=== PATIENT | male | born 1995 | race Caucasian/White ===

== ENCOUNTER 2020-10-24 23:01 | Emergency (ER) | payer OTHER ==
[~2020-10-24] VITALS: Ht 175.3 cm; Wt 65.8 kg
[2020-10-24 23:10] VITALS: BP 148/89
--- NOTE | 2020-10-24 23:13 | NUR ---
PATIENT ASSESSMENT COMPLETED BY MAE, NO NURSING INTERVENTIONS REQUIRED AT THIS TIME.
--- NOTE | 2020-10-24 23:13 | NUR ---
TO LOBBY A/ W BED AMBULATORY
--- NOTE | 2020-10-25 00:50 | NUR ---
TO ER BED 6
[2020-10-25 02:20] VITALS: BP 148/89
--- NOTE | 2020-10-25 02:21 | NUR ---
Patient discharged with v/s stable. Written and verbal after care instructions given and explained. Patient verbalized understanding. Ambulatory with steady gait. All questions addressed prior to discharge. Advised to follow up with PMD.
== END 2020-10-25 02:21 | disposition home or self-care (01) ==
LOC: MED 23:01
DX: S01.80XA Unspecified open wound of other part of head, initial encounter (principal); W34.00XA Accidental discharge from unspecified firearms or gun, initial encounter; Y93.89 Activity, other specified; Y92.89 Other specified places as the place of occurrence of the external cause; Y99.8 Other external cause status
CPT/HCPCS: 70486; 99284

== ENCOUNTER 2021-06-13 19:01 | Emergency (ER) | payer OTHER ==
[~2021-06-13] VITALS: Ht 172.7 cm; Wt 63.5 kg
[2021-06-13 19:07] VITALS: BP 133/94
--- NOTE | 2021-06-13 19:07 | NUR ---
[place] [employer] at bedside.
--- NOTE | 2021-06-13 19:07 | NUR ---
Patient placed on bed 7.
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
--- NOTE | 2021-06-13 19:24 | NUR ---
Dr. Diggs at bedside to exam patient.
--- NOTE | 2021-06-13 19:26 | NUR ---
Note ozzie in ED - 06/13/21 at 1926 by GRAHAM ENDORSED BEDSIDE REPORT TO KLARISSA HOLT RN FOR CONTINUITY OF CARE. NO ACUTE DISTRESS AT THIS TIME.
[2021-06-13] MEDS ORDERED: NACL 0.9% 1,000 ML IV ONE (19:30)
[2021-06-13] MEDS ORDERED: ONDANSETRON 4 MG/2 ML VIAL IVP ONE (19:30)
--- NOTE | 2021-06-13 22:00 | NUR ---
PT SLEEPING. PT NO LONGER VOMITING
[2021-06-13 23:08] VITALS: BP 113/80
--- NOTE | 2021-06-14 00:02 | NUR ---
Note ozzie in ED - 06/14/21 at 0003 by PATY Patient discharged with v/s stable. Written and verbal after care instructions given and explained. Patient verbalized understanding. Ambulatory with [place] [employer] in custody. All questions addressed prior to discharge. Advised to follow up with PMD.
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
--- NOTE | 2021-06-14 00:04 | NUR ---
The patient's care was reviewed and supervised by Judy Randall RN.
== END 2021-06-13 23:08 ==
LOC: MED 19:01
DX: Z02.89 Encounter for other administrative examinations (principal); F10.129 Alcohol abuse with intoxication, unspecified; R11.2 Nausea with vomiting, unspecified
CPT/HCPCS: 96361; 96374; 99283; J2405; J7030